=== PATIENT | male | born 1945 | race Caucasian/White ===

== ENCOUNTER 2019-08-25 07:02 | Day surgery (SDC) | payer MEDICARE ==
[~2019-08-25 07:02] MED LIST: LACTATED RINGERS 1,000 ML IV SCH; LIDOCAINE 1% 20 ML VIAL (10MG/ML) FOR IV START INTRADERMA PRN; MIDAZOLAM 2 MG/2 ML VIAL IV PRN; Pre Op ABX Message 1 EACH MISC MISCELLANE ONE; fentaNYL (PF) 50 MCG/ML 2 ML AMP IV PRN
[2019-08-25 07:37] VITALS: RESP 16; TEMP 97.6
[2019-08-25] MEDS ORDERED: LIDOCAINE 1% INJ 10MG/ML (20 ML MDV) ONE (08:09)
[2019-08-25] MEDS ORDERED: fentaNYL (PF) 50 MCG/ML 2 ML AMP ONE (08:09)
[2019-08-25] MEDS ORDERED: MIDAZOLAM 2 MG/2 ML VIAL ONE (08:09)
[2019-08-25] MEDS ORDERED: PROPOFOL 10 MG/ML 20 ML VIAL IV ONE (08:09)
[2019-08-25] MEDS ORDERED: BUPIVACAINE (PF) 0.5% 30 ML VIAL SQ ONE (08:21)
[2019-08-25] MEDS ORDERED: LIDOCAINE 2% (PF) 20 MG/ML 10 ML AMP SQ ONE (08:21)
--- NOTE | 2019-08-25 09:29 | OP ---
OPERATIVE REPORT DATE OF SURGERY: 08/25/2019 SURGEON: Rigoberto Cifuentes DO PREOPERATIVE DIAGNOSIS: Dupuytren's contracture, left hand and ring finger. FINAL DIAGNOSIS: Dupuytren's contracture, left hand and ring finger. PROCEDURES: 1. Excision of Dupuytren's contracture, left hand and left ring finger. 2. Neurolysis radial and ulnar digital nerves, left ring finger. GROSS PATHOLOGY: There was a pretendinous cord that extended across the PIP joint creating a 45 degree contracture. Subsequent to excision of the Dupuytren's tissue, the PIP joint came in the full passive extension with no resistance. There was an additional cord in the palm of the hand removed through a separate incision. PROCEDURE: A 73-year-old man was taken to the operative suite and given IV sedation and I then did a modified digital block with a combination of Xylocaine and Marcaine both without epinephrine. His hand was prepped and draped in usual manner. It was elevated, exsanguinated and cuff was inflated to 250 mmHg. A longitudinal zigzag incision was made from the proximal skin crease of the finger distally across the PIP joint. Skin flaps were dissected under 4.5 loupe magnification, held retracted with skin hooks. A tedious dissection of the digital nerves was performed requiring a neurolysis to free the nerves from the Dupuytren's tissue which had embedded the nerves. Fortunately, this neurolysis was successful and the digital nerves and vessels were dissected away from the Dupuytren's fascia which was then excised and sent to the lab for analysis. As stated above, the PIP joint came into full passive unrestricted extension. There was still a cord in the palm which was producing a slight contracture of the MP joint. An additional separate incision was made in the palm in a zigzag manner and a palmar fasciectomy was performed. This relieved the MP joint contracture also. The tourniquet was then released. Both wounds were irrigated. Hemostasis acquired with pressure and electrocautery. Skins were closed with 5-0 nylon suture followed by application of a soft bulky dressing. Patient was taken recovery room in satisfactory condition. MMODL / IJN: [id number] /
[2019-08-25 09:36] VITALS: BP 153/93; PULSE 51
== END 2019-08-25 09:43 | disposition home or self-care (01) ==
LOC: OR 07:02
PROVIDERS: ATTEND Orthopaedic Surgery Hand Surgery
DX: M72.0 Palmar fascial fibromatosis [Dupuytren] (principal); I10 Essential (primary) hypertension; I73.00 Raynaud's syndrome without gangrene; Z79.899 Other long term (current) drug therapy
CPT/HCPCS: 88304; 26121; 64702; J2250; J2001 ×2; J3010; J2704

== ENCOUNTER → 2021-02-17 | Outpatient (CLI) | payer MEDICARE ==
--- NOTE | 2021-02-17 12:52 | XR ---
EXAMINATION TYPE: XR chest 2V DATE OF EXAM: 02/17/2021 COMPARISON: NONE HISTORY: Lump under xiphoid process. TECHNIQUE: Frontal and lateral views of the chest are obtained. FINDINGS: Heart size is within normal limits. Elevation of the left hemidiaphragm is prominent. No p leural effusion, or focal consolidation or pneumothorax. There is linear atelectasis or scarring at t he left lung base. No radiopaque abnormality at the xiphoid process. If clinically indicated, an ultr asound could be obtained for further evaluation. Degenerative changes of the thoracic spine. IMPRESSION: 1. Asymmetric elevation of the left hemidiaphragm. 2. Minimal linear atelectasis or scarring at the left lung base. 3. No discrete radiographic correlate for the patient's lump under the xiphoid process. Ultrasound co uld be obtained if clinically indicated.
== END | disposition home or self-care (01) ==
LOC: RADXRMAIN 10:35
PROVIDERS: ATTEND Internal Medicine
DX: J98.6 Disorders of diaphragm (principal)
CPT/HCPCS: 71046

== ENCOUNTER → 2021-03-23 | Outpatient (CLI) | payer MEDICARE ==
--- NOTE | 2021-03-23 14:08 | US ---
EXAMINATION TYPE: US abdomen complete DATE OF EXAM: 03/23/2021 COMPARISON: NONE CLINICAL HISTORY: R22.2 Epigastricmass xiphoid process area. patient feels a hard lump epigastric are a EXAM MEASUREMENTS: Liver Length: 15.3 cm Gallbladder Wall: 0.2 cm Spleen: 10.2 cm Right Kidney: 8.2 x 4.4 x 4.5 cm Left Kidney: 9.5 x 5.2 x 4.1cm technical limitations due to large amount of overlying bowel content Pancreas: Obscured by bowel gas Liver: only visualized intercostally, appears wnl as visualized Gallbladder: no evidence of stones Evidence for sonographic Presley's sign: no CBD: Obscured by overlying bowel gas Spleen: granulomas Right Kidney: cystic area lower pole = 1.3 x 0.9 x 1.0cm Left Kidney: no evidence of hydronephrosis Upper IVC: wnl Abd Aorta: wnl *scanned within patient's area of concern, mid epigastric area, no visualized abnormalities by ultras ound, recommend other imaging modality IMPRESSION: 1. Right renal cyst. 2. No suspicious ultrasound abnormality within the epigastric region scanned.
== END | disposition home or self-care (01) ==
LOC: RADUSWWP 09:32
PROVIDERS: ATTEND Internal Medicine
DX: N28.1 Cyst of kidney, acquired (principal)
CPT/HCPCS: 76700